=== PATIENT | female | born 1965 | race Caucasian/White ===

== ENCOUNTER 2016-06-07 13:22 | Emergency (ER) | payer OTHER ==
[2016-06-07 13:34] VITALS: O2SAT 100
--- NOTE | 2016-06-07 14:25 | ERPHSYRPT ---
- History of Present Illness Time Seen by Provider: 06/07/16 14:23 Historian: patient, family Exam Limitations: no limitations Patient Subjective Stated Complaint: pt co pain to left side of chest that started over an hour ago with radiation to left jaw and some nausea.pt took 2 nerve pills at home to help Triage Nursing Assessment: pt arrived anxious and would not sit up in wc, resp labored,chest clear, no edema noted, moves all ext well, pt moaning out at times Physician History: The patient is a 50-year-old female with her daughter complaining of a sudden onset of chest pain about an hour and a half ago. The patient was standing in the kitchen fixing lunch when it suddenly hurt her. She says it was a pressure burning and sharp pain. It then radiated to her neck and arm. She was nauseated and short of breath and was sweating. She has a history of anxiety and thought maybe this what it was in the beginning but she thought maybe it was an called her daughter to come take her to the hospital. She was concerned about a heart problem but did not want to call an ambulance because it was too expensive. She has been evaluated for cardiac issues and chest pain in the past , but the workup has been negative. 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 She has COPD and continues to smoke daily. Her family history is unremarkable for early DE. She did not take an aspirin at home. In addition to anxiety, she has irritable bowel syndrome, back pain, and migraine headaches. Her surgical history is significant for laparoscopy. Timing/Duration: today, hour(s) (05 27/2), sudden, improved Activities at Onset: none Quality: burning, pressure, stabbing Location: central Chest Pain Radiation: neck, arm Severity of Pain-Max: severe Severity of Pain-Current: moderate Modifying Factors: Improves With: nothing Associated Symptoms: nausea, shortness of breath, diaphoresis Prior Chest Pain/Cardiac Workup: non-cardiac Nitro Today/Relief: no nitro taken today Aspirin Treatment Today: no aspirin today Allergies/Adverse Reactions: acetaminophen [From Vicodin] Allergy (Intermediate, Verified 06/07/16 13:24) rash and vomits hydrocodone bitartrate [From Vicodin] Allergy (Intermediate, Verified 06/07/16 13:24) rash and vomits meperidine HCl [From Demerol] Allergy (Intermediate, Verified 06/07/16 13:24) rash vomit morphine Allergy (Intermediate, Verified 06/07/16 13:24) rash ketorolac Allergy (Mild, Verified 06/07/16 13:24) causes headache ondansetron [From Zofran (as hydrochloride)] Allergy (Verified 06/07/16 13:24) Home Medications: Codeine Phosphate/APAP #3 [Tylenol #3 Tablet] 1 tab PO Q4-6HPRN PRN [History] Alprazolam 1 mg [Xanax 1 mg] 2 mg PO TID PRN PRN 11/07/14 [History] Ascorbic Acid 500 mg [Vitamin C 500 MG] 500 mg PO BID 04/24/15 [History] Cranberry Extract [Cranberry] 500 mg PO BID 04/24/15 [History] Cyanocobalamin (Vitamin B-12) [B-12] 3,000 mcg SL BID 04/24/15 [History] Lysine 500 mg PO BID 04/24/15 [History] Hx Tetanus, Diphtheria Vaccination/Date Given: Yes Hx Influenza Vaccination/Date Given: No Hx Pneumococcal Vaccination/Date Given: No Immunizations Up to Date: Yes - Review of Systems Constitutional: No Fever, No Chills Eyes: No Symptoms Ears, Nose, & Throat: No Symptoms Respiratory: Dyspnea Cardiac: Chest Pain Abdominal/Gastrointestinal: Nausea Genitourinary Symptoms: No Dysuria Musculoskeletal: No Back Pain, No Neck Pain Skin: No Rash Neurological: No Dizziness, No Focal Weakness, No Sensory Changes Psychological: Anxiety Endocrine: No Symptoms Hematologic/Lymphatic: No Symptoms Immunological/Allergic: No Symptoms All Other Systems: Reviewed and Negative - Past Medical History Pertinent Past Medical History: Yes Neurological History: Migraines ENT History: No Pertinent History Cardiac History: No Pertinent History Respiratory History: COPD Endocrine Medical History: No Pertinent History Musculoskeletal History: No Pertinent History GI Medical History: Irritable Bowel History: Other Psycho-Social History: Anxiety, Depression Female Reproductive Disorders: Endometriosis Other Medical History: possible DE - Past Surgical History Past Surgical History: Yes (D&C years back stated per pt) Neuro Surgical History: No Pertinent History Cardiac: No Pertinent History Respiratory: No Pertinent History Gastrointestinal: No Pertinent History Genitourinary: No Pertinent History Musculoskeletal: No Pertinent History Female Surgical History: No Pertinent History Other Surgical History: Leslie A, Oscar Todd - Social History Smoking Status: Current every day smoker How long have you smoked: 33 YEARS Exposure to second hand smoke: Yes Alcohol Use: Socially Drug Use: none Patient Lives Alone: No Significant Family History: other (migraine HAs) - Female History Hx Last Menstrual Period: post Hx Now: No - Nursing Vital Signs Temperature: 98.1 F Temperature Source: Oral Pulse Rate: 110 Respiratory Rate: 16 Blood Pressure: 160/123 Pain Intensity: 9 - Physical Exam General Appearance: mild distress Eye Exam: PERRL/EOMI, eyes nml inspection Ears, Nose, Throat Exam: normal ENT inspection, moist mucous membranes Neck Exam: normal inspection, non-tender, supple, full range of motion Respiratory Exam: chest tenderness (central) Cardiovascular Exam: regular rate/rhythm, normal heart sounds Gastrointestinal/Abdomen Exam: soft, No tenderness, No mass Pelvic Exam: not done Rectal Exam: not done Back Exam: normal inspection, No CVA tenderness, No vertebral tenderness Extremity Exam: normal inspection, normal range of motion Neurologic Exam: alert, oriented x 3, cooperative, normal mood/affect, sensation nml, No motor deficits Skin Exam: normal color, warm, dry SpO2 Interpretation: normal SpO2: 100 Oxygen Delivery: Room Air - Course EKG Interpreted by Me: Sinus Tach, NORMAL AXIS, NORMAL INTERVALS, NORMAL QRS, NORMAL ST-T Ordered Tests: Medication Summary Discontinued Medications Generic Name Dose Route Start Last Admin Trade Name Freq PRN Reason Stop Dose Admin Aspirin 324 mg 06/07/16 14:27 Baby Aspirin 81 Mg Chew PO 06/07/16 14:28 STAT ONE Nitroglycerin 0.4 mg 06/07/16 14:27 Nitrostat 0.4 Mg (Ed) SL 06/07/16 14:28 STAT ONE Promethazine HCl 12.5 mg 06/07/16 14:27 Phenergan 25 Mg Inj IV 06/07/16 14:28 STAT ONE Lab/Rad Data: Laboratory Result Diagrams 06/07/16 14:34 06/07/16 14:34 Laboratory Results 06/07/16 06/07/16 06/07/16 Range/Units 15:12 14:34 14:34 WBC (4.0-10.5) K/mm3 RBC (4.1-5.4) M/mm3 Hgb (12.0-16.0) gm/dl Hct (35-47) % MCV (78-100) fl MCH (26-32) pg MCHC (32-36) g/dl RDW (11.5-14.0) % Plt Count (150-450) K/mm3 MPV (6-9.5) fl Gran % (36.0-66.0) % Lymphocytes % (24.0-44.0) % Monocytes % (0.0-12.0) % Eosinophils % (0.00-5.0) % Basophils % (0.0-0.4) % Basophils # (0-0.4) Sodium 142 (136-145) mEq/L Potassium 4.3 (3.5-5.1) mEq/L Chloride 106 (98-107) mEq/L Carbon Dioxide 26.8 (21-32) mEq/L Anion Gap 13.4 (5-15) MEQ/L BUN 11 (9-20) mg/dL Creatinine 0.74 (0.55-1.30) mg/dl Estimated GFR > 60 ML/MIN Glucose 99 (70-110) MG/DL Calcium 9.3 (8.5-10.1) mg/dL Total Bilirubin 0.3 (0.2-1.0) mg/dL AST 17 (15-37) U/L ALT 32 (12-78) U/L Alkaline Phosphatase 119 H (46-116) U/L Creatine Kinase 67 (26-192) U/L Troponin I < 0.017 (0.000-0.056) ng/ml Serum Total Protein 7.3 (6.4-8.2) gm/dL Albumin 4.0 (3.4-5.0) g/dL Urine Opiates Level NEG. (NEGATIVE) Ur Methadone NEG. (NEGATIVE) Urine Barbiturates NEG. (NEGATIVE) Ur Phencyclidine (PCP) NEG. (NEGATIVE) Urine Amphetamine NEG. (NEGATIVE) U Benzodiazepine Level POS. (NEGATIVE) Urine Cocaine NEG. (NEGATIVE) Urine Marijuana (THC) NEG. (NEGATIVE) 06/07/16 Range/Units 14:34 WBC 10.6 H (4.0-10.5) K/mm3 RBC 4.64 (4.1-5.4) M/mm3 Hgb 13.4 (12.0-16.0) gm/dl Hct 42.0 (35-47) % MCV 90.5 (78-100) fl MCH 28.9 (26-32) pg MCHC 31.9 L (32-36) g/dl RDW 15.0 H (11.5-14.0) % Plt Count 418 (150-450) K/mm3 MPV 10.4 H (6-9.5) fl Gran % 52.3 (36.0-66.0) % Lymphocytes % 37.5 (24.0-44.0) % Monocytes % 6.7 (0.0-12.0) % Eosinophils % 3.3 (0.00-5.0) % Basophils % 0.2 (0.0-0.4) % Basophils # 0.02 (0-0.4) Sodium (136-145) mEq/L Potassium (3.5-5.1) mEq/L Chloride (98-107) mEq/L Carbon Dioxide (21-32) mEq/L Anion Gap (5-15) MEQ/L BUN (9-20) mg/dL Creatinine (0.55-1.30) mg/dl Estimated GFR ML/MIN Glucose (70-110) MG/DL Calcium (8.5-10.1) mg/dL Total Bilirubin (0.2-1.0) mg/dL AST (15-37) U/L ALT (12-78) U/L Alkaline Phosphatase (46-116) U/L Creatine Kinase (26-192) U/L Troponin I (0.000-0.056) ng/ml Serum Total Protein (6.4-8.2) gm/dL Albumin (3.4-5.0) g/dL Urine Opiates Level (NEGATIVE) Ur Methadone (NEGATIVE) Urine Barbiturates (NEGATIVE) Ur Phencyclidine (PCP) (NEGATIVE) Urine Amphetamine (NEGATIVE) U Benzodiazepine Level (NEGATIVE) Urine Cocaine (NEGATIVE) Urine Marijuana (THC) (NEGATIVE) - Departure Time of Disposition: 15:44 Departure Disposition: Home Clinical Impression: Chest pain of uncertain etiology Condition: Good Critical Care Time: No Referrals: SHIRA YUNG [Primary Care Provider] -
[2016-06-07 14:26] VITALS: BP 160/123; PULSE 110
[2016-06-07] MEDS ORDERED: Nitrostat 0.4 MG (ED) SL ONE (14:27)
[2016-06-07] MEDS ORDERED: BABY ASPIRIN 81 MG CHEW PO ONE (14:27)
[2016-06-07] MEDS ORDERED: Phenergan 25 MG INJ IV ONE (14:27)
[2016-06-07 14:39] LABS: BASOPHIL % 0.2 % (0.0-0.4); Eosinophil % 3.3 % (0.00-5.0); Granulocytes % 52.3 % (36.0-66.0); Lymphocytes % 37.5 % (24.0-44.0); Mean Cell Volume 90.5 fl (78-100); Mean Corpuscular Hemoglobin 28.9 pg (26-32); Mean Platelet Volume 10.4 fl (6-9.5); Monocytes % 6.7 % (0.0-12.0); Platelet Count 418 K/mm3 (150-450); Red Blood Count 4.64 M/mm3 (4.1-5.4); White Blood Count 10.6 K/mm3 (4.0-10.5)
[2016-06-07 14:54] LABS: ALKALINE PHOSPHATASE 119 U/L (46-116); ANION GAP 13.4 MEQ/L (5-15); BILIRUBIN,TOTAL 0.3 mg/dL (0.2-1.0); BLOOD UREA NITROGEN 11 mg/dL (9-20); CHLORIDE 106 mEq/L (98-107); Carbon Dioxide 26.8 mEq/L (21-32); Glucose 99 MG/DL (70-110); SGOT/AST 17 U/L (15-37); SGPT/ALT 32 U/L (12-78); SODIUM 142 mEq/L (136-145); Total Protein 7.3 gm/dL (6.4-8.2)
[2016-06-07 14:58] LABS: Potassium 4.3 mEq/L (3.5-5.1)
== END 2016-06-07 14:41 | disposition left against medical advice (07) ==
LOC: ED 13:22
DX: R07.89 Other chest pain (principal); R11.0 Nausea; R06.02 Shortness of breath; R61 Generalized hyperhidrosis
CPT/HCPCS: 36000; 36415; 80053; 80307; 82550; 84484; 85025; 93005; 93041; 99283

== ENCOUNTER 2017-10-13 14:16 | Emergency (ER) | payer OTHER ==
[2017-10-13] MEDS ORDERED: Nubain 10 MG/ML IM ONE (14:53)
[2017-10-13] MEDS ORDERED: Phenergan 25 MG INJ IM ONE (14:54)
[2017-10-13] MEDS ORDERED: Nubain 10 MG/ML ONE (14:56)
[2017-10-13] MEDS ORDERED: Phenergan 25 MG INJ ONE (14:56)
--- NOTE | 2017-10-13 14:59 | ERPHSYRPT ---
- History of Present Illness Time Seen by Provider: 10/13/17 14:55 Source: patient Exam Limitations: no limitations Patient Subjective Stated Complaint: was lifting heavy furniture heard her back pop and now is having extreme pain in lower middle of back Triage Nursing Assessment: patietn alert and orietnedx3, able to ambulate but is hunched over when walks, gait is slow but steady, pedal pulses present, no abnormalities seen on back, skin warm dry adn itnact, lung sounds clear, pulses equal bilateral radius. Physician History: 52-year-old white female with history of chronic pain chronic back pain arrives with complaint of pain in her low back symptoms since this afternoon. Patient states that she decided to move a couch and strained her back she complains of pain in her back. Past medical history includes migraines, COPD, irritable bowel, anxiety, depression, endometriosis, possible myocardial infarction Past surgical history includes D&C. Patient states she's been through menopause Timing/Duration: today Severity: moderate Modifying Factors: Improves With: movement Associated Symptoms: No nausea, No vomiting, No abdominal pain, No shortness of breath, No heartburn, No diaphoresis, No cough, No chills, No chest pain, No fever, No headaches, No loss of appetite, No malaise, No rash, No syncope, No seizure Allergies/Adverse Reactions: acetaminophen [From Vicodin] Allergy (Intermediate, Verified 06/07/16 13:24) rash and vomits hydrocodone bitartrate [From Vicodin] Allergy (Intermediate, Verified 06/07/16 13:24) rash and vomits meperidine HCl [From Demerol] Allergy (Intermediate, Verified 06/07/16 13:24) rash vomit morphine Allergy (Intermediate, Verified 06/07/16 13:24) rash ketorolac Allergy (Mild, Verified 06/07/16 13:24) causes headache ondansetron [From Zofran (as hydrochloride)] Allergy (Verified 06/07/16 13:24) Home Medications: Codeine Phosphate/APAP #3 [Tylenol #3 Tablet] 1 tab PO Q4-6HPRN PRN [History] Alprazolam 1 mg [Xanax 1 mg] 2 mg PO TID PRN PRN 11/07/14 [History] Ascorbic Acid 500 mg [Vitamin C 500 MG] 500 mg PO BID 04/24/15 [History] Cranberry Fruit Extract [Cranberry] 500 mg PO BID 04/24/15 [History] Cyanocobalamin (Vitamin B-12) [B-12] 3,000 mcg SL BID 04/24/15 [History] Lysine 500 mg PO BID 04/24/15 [History] Hx Tetanus, Diphtheria Vaccination/Date Given: Yes Hx Influenza Vaccination/Date Given: No Hx Pneumococcal Vaccination/Date Given: No Immunizations Up to Date: Yes - Review of Systems Constitutional: No Fever, No Chills Eyes: No Symptoms Ears, Nose, & Throat: No Symptoms Respiratory: No Cough, No Dyspnea Cardiac: No Chest Pain, No Edema, No Syncope Abdominal/Gastrointestinal: No Abdominal Pain, No Nausea, No Vomiting, No Diarrhea Genitourinary Symptoms: No Dysuria Musculoskeletal: Back Pain Skin: No Rash Neurological: No Dizziness, No Focal Weakness, No Sensory Changes Psychological: No Symptoms Endocrine: No Symptoms All Other Systems: Reviewed and Negative - Past Medical History Pertinent Past Medical History: Yes Neurological History: Migraines ENT History: No Pertinent History Cardiac History: No Pertinent History Respiratory History: COPD Endocrine Medical History: No Pertinent History Musculoskeletal History: No Pertinent History GI Medical History: Irritable Bowel History: Other Psycho-Social History: Anxiety, Depression Female Reproductive Disorders: Endometriosis Other Medical History: possible [facility] - Past Surgical History Past Surgical History: Yes (D&C years back stated per pt) Neuro Surgical History: No Pertinent History Cardiac: No Pertinent History Respiratory: No Pertinent History Gastrointestinal: No Pertinent History Genitourinary: No Pertinent History Musculoskeletal: No Pertinent History Female Surgical History: No Pertinent History Other Surgical History: Oscar Langford - Social History Smoking Status: Current every day smoker How long have you smoked: 33 YEARS Exposure to second hand smoke: Yes Alcohol Use: Socially Drug Use: none Patient Lives Alone: No Significant Family History: other (migraine HAs) - Female History Hx Now: No - Nursing Vital Signs Nursing Vital Signs: Initial Vital Signs Temperature 98 F 10/13/17 14:17 Pulse Rate 98 H 10/13/17 14:17 Respiratory Rate 18 10/13/17 14:17 Blood Pressure 119/80 10/13/17 14:17 O2 Sat by Pulse Oximetry 97 10/13/17 14:17 Pain Scale Pain Intensity [Posterior Back 10 ] Pain Intensity 10 - Physical Exam General Appearance: moderate distress Eye Exam: PERRL/EOMI, eyes nml inspection Ears, Nose, Throat Exam: normal ENT inspection, TMs normal, pharynx normal, moist mucous membranes Neck Exam: normal inspection, non-tender, supple, full range of motion Respiratory Exam: normal breath sounds, lungs clear, No respiratory distress Cardiovascular Exam: regular rate/rhythm, normal heart sounds, normal peripheral pulses Gastrointestinal/Abdomen Exam: soft, normal bowel sounds, No tenderness, No mass Back Exam: other (pain with palpation and movement lumbar region) Extremity Exam: normal inspection, normal range of motion, pelvis stable Neurologic Exam: alert, oriented x 3, cooperative, normal mood/affect, nml cerebellar function, nml station & gait, sensation nml, No motor deficits Skin Exam: normal color, warm, dry, No rash SpO2 Interpretation: normal (97%) SpO2: 97 Oxygen Delivery: Room Air - Course Nursing assessment & vital signs reviewed: Yes EKG Interpreted by Me: RATE (95 bpm), Sinus Rhythm, NORMAL AXIS, Other (EKG, normal sinus rhythm, 95 bpm, normal axis, no acute ST or T wave changes, normal EKG) - Radiology Exams Chest X-ray Interpretation: Interpreted by me, Other (chest x-ray no fractures, no infiltrates, no pneumothorax) L-Spine X-ray Interpretation: Interpreted by me (LS-spine no fractures, no subluxation, loss of lumbar lordosis possible muscle spasm) Ordered Tests: Active Orders 24 hr Category Date Time Status EKG-ER Only STAT Care 10/13/17 15:26 Active CHEST 2 VIEWS (PA AND LAT) Stat Exams 10/13/17 15:27 Ordered LUMBAR LIMITED (2 OR 3 VIEWS) Stat Exams 10/13/17 14:56 Ordered Medication Summary Discontinued Medications Generic Name Dose Route Start Last Admin Trade Name Freq PRN Reason Stop Dose Admin Nalbuphine HCl 10 mg 10/13/17 14:53 10/13/17 14:59 Nubain 10 Mg/Ml IM 10/13/17 14:54 10 mg STAT ONE Administration Nalbuphine HCl Confirm 10/13/17 14:56 Nubain 10 Mg/Ml Administered 10/13/17 14:57 Dose 10 mg .ROUTE .STK-MED ONE Orphenadrine Citrate 60 mg 10/13/17 16:02 10/13/17 16:05 Norflex 60 Mg/2 Ml IM 10/13/17 16:03 60 mg STAT ONE Administration Orphenadrine Citrate Confirm 10/13/17 16:04 Norflex 60 Mg/2 Ml Administered 10/13/17 16:05 Dose 60 mg .ROUTE .STK-MED ONE Promethazine HCl 25 mg 10/13/17 14:54 10/13/17 14:59 Phenergan 25 Mg Inj IM 10/13/17 14:55 25 mg STAT ONE Administration Promethazine HCl Confirm 10/13/17 14:56 Phenergan 25 Mg Inj Administered 10/13/17 14:57 Dose 25 mg .ROUTE .STK-MED ONE - Progress Progress: improved Progress Note: 10/13/17 15:28 52-year-old white female with history of migraines, COPD, irritable bowel, anxiety, depression, endometriosis, questionable VA in the past. She arrives with complaint of pain in her back since just one half hour prior to arrival she states she injured herself moving a couch. She also states like she feels like she injured her chest and pulled something in her chest muscles moving a couch she states she does not have chest pain she has pain with movement in the anterior chest. Patient is given Nubain 10 mg IM Phenergan 25 mg IM. LS spine is ordered chest x-ray 2 views ordered EKG is ordered. Patient really does not feel like she has chest pain rather than pain like she pulled something in her chest after moving a couch. 10/13/17 16:14 Patient better but not completely pain-free after Nubain patient given Norflex. EKG within normal limits patient mildly tender with palpation over the sternum. Chest x-ray unremarkable. Lumbar spine no fractures no subluxation loss of lumbar lordosis possible muscle spasm. Will release patient with Flexeril 10 mg orally 3 times a day patient has are not [place] Tylenol 3 at home. - Departure Time of Disposition: 16:15 Departure Disposition: Home Clinical Impression: Muscle strain of anterior chest wall Back pain Qualifiers: Back pain location: low back pain Chronicity: acute Back pain laterality: midline Sciatica presence: without sciatica Qualified Code(s): M54.5 - Low back pain Lumbar strain Qualifiers: Encounter type: initial encounter Qualified Code(s): S39.012A - Strain of muscle, fascia and tendon of lower back, initial encounter Condition: Fair Critical Care Time: No Referrals: SHIRA YUNG [Primary Care Provider] - Instructions: Low Back Pain (DC) Additional Instructions: Return home. Flexeril 10 mg orally 3 times a day for 5 days. Tylenol 3 as prescribed by your family physician. Avoid lifting greater than 5 pounds excessive bending twisting lifting pulling pushing 48 hours. Follow-up with your family doctor if symptoms are worse no better in 48 hours or persist longer than one week. Return for acute distress or for severe symptoms. Your x-rays have been preliminarily read They will be reread tomorrow. You will be contacted if any discrepancies are noted. Prescriptions: Cyclobenzaprine HCl [Flexeril] 10 mg PO TID #15 tablet
[2017-10-13 15:11] VITALS: PULSE 100
[2017-10-13] MEDS ORDERED: Norflex 60 MG/2 ML IM ONE (16:02)
[2017-10-13] MEDS ORDERED: Norflex 60 MG/2 ML ONE (16:04)
[2017-10-13 16:26] VITALS: BP 126/81; O2SAT 96
--- NOTE | 2017-10-13 21:13 | XRAY ---
Indication: Pulled muscle. Comparison: May 21, 2015. PA/lateral chest again hyperinflated with chronic lung markings and bilateral nipple shadows. No focal infiltrate, consolidation, or large effusion. Heart is not enlarged. Bone thorax intact again with mild osteopenia, degenerative changes, and minimal scoliosis. Impression: Nonacute chest with chronic features.
--- NOTE | 2017-10-13 21:16 | XRAY ---
Indication: Low back pain following injury. Comparison: None 3 views of the lumbar spine demonstrates 5 lumbar vertebral segments in normal alignment with mild osteopenia, minimal L4-L5 disc space narrowing, mild aortic calcifications, and mild scattered colonic fecal debris without obstruction. No other bony, articular, or soft tissue abnormalities. Impression: Nonacute lumbar spine with chronic features.
== END 2017-10-13 16:26 | disposition home or self-care (01) ==
LOC: ED 14:16
DX: S29.011A Strain of muscle and tendon of front wall of thorax, initial encounter (principal); S39.012A Strain of muscle, fascia and tendon of lower back, initial encounter; X50.0XXA Overexertion from strenuous movement or load, initial encounter
CPT/HCPCS: 71046; 72100; 93005; 96372; 99284; J2300; J2360; J2550

== ENCOUNTER 2017-12-08 20:11 | Emergency (ER) | payer OTHER ==
[2017-12-08] MEDS ORDERED: Norflex 60 MG/2 ML IM ONE (20:36)
[2017-12-08] MEDS ORDERED: Phenergan 25 MG INJ IM ONE (20:36)
[2017-12-08] MEDS ORDERED: SUBLIMAZE 100 MCG/2 ML IM ONE (20:36)
--- NOTE | 2017-12-08 20:46 | ERPHSYRPT ---
- History of Present Illness Time Seen by Provider: 12/08/17 20:19 Source: patient Exam Limitations: no limitations Patient Subjective Stated Complaint: Broke 4 vertebrae 3 weeks ago and has been in pain since then but fell off the porch yesterday Triage Nursing Assessment: Pt stated that she broke 4 vertebrae about 3 weeks ago from trying to lift something, went to hospital in [facility], fell from porch yesterday, pain in lower back that radiates around pelvis and down legs, pulses normal, tachy at 109, stated that she has some numbing and tingling in her toes and feet, denies neck pain, rates pain 8/10, denies fever, has had some vomiting with pain Physician History: Pt states, she was seen here 3 weeks ago, after a lifting incident, and sent home. She went to [place] to the local ED few days later, and apparently was diagnosed with 4 fractured vertebrae. She was given Percocet, Robaxin and Phenergan, but ran out of it, and unable to reach her physician, who is in [place]. She apparently fell again off her porch yesterday, landed on her buttock, and aggravated her back. She denies other injury, no headaches, LOC, vomiting, abd. pain, fever, other complaints. Timing/Duration: yesterday Method of Injury: fall Quality: radiating, sharp Back Pain Location: lumbar spine Back Pain Radiation: buttocks Severity of Pain-Max: severe Severity of Pain-Current: severe Modifying Factors: Improves With: movement Associated Symptoms: denies symptoms Previous symptoms: same symptoms as today Allergies/Adverse Reactions: acetaminophen [From Vicodin] Allergy (Intermediate, Verified 12/08/17 20:35) rash and vomits hydrocodone bitartrate [From Vicodin] Allergy (Intermediate, Verified 12/08/17 20:35) rash and vomits meperidine HCl [From Demerol] Allergy (Intermediate, Verified 12/08/17 20:34) rash vomit morphine Allergy (Intermediate, Verified 12/08/17 20:35) rash ketorolac Allergy (Mild, Verified 12/08/17 20:35) causes headache ondansetron [From Zofran (as hydrochloride)] Allergy (Verified 12/08/17 20:35) Home Medications: Codeine Phosphate/APAP #3 [Tylenol #3 Tablet] 1 tab PO Q4-6HPRN PRN [History] Diltiazem HCl [Cartia Xt] 120 mg PO DAILY 12/08/17 [History] LORazepam [Lorazepam] 1 mg PO HS 12/08/17 [History] Hx Tetanus, Diphtheria Vaccination/Date Given: Yes Hx Influenza Vaccination/Date Given: No Hx Pneumococcal Vaccination/Date Given: No - Review of Systems Constitutional: No Symptoms Respiratory: No Symptoms Abdominal/Gastrointestinal: No Abdominal Pain, No Vomiting Musculoskeletal: Back Pain All Other Systems: Reviewed and Negative - Past Medical History Pertinent Past Medical History: Yes Neurological History: Migraines ENT History: No Pertinent History Cardiac History: No Pertinent History Respiratory History: COPD Endocrine Medical History: No Pertinent History Musculoskeletal History: No Pertinent History GI Medical History: Irritable Bowel History: Other Psycho-Social History: Anxiety, Depression Female Reproductive Disorders: Endometriosis Other Medical History: possible [place] - Past Surgical History Past Surgical History: Yes (D&C years back stated per pt) Neuro Surgical History: No Pertinent History Cardiac: No Pertinent History Respiratory: No Pertinent History Gastrointestinal: No Pertinent History Genitourinary: No Pertinent History Musculoskeletal: No Pertinent History Female Surgical History: No Pertinent History Other Surgical History: Dand C, and a laproscopy - Social History Smoking Status: Current every day smoker How long have you smoked: 33 YEARS Exposure to second hand smoke: No Alcohol Use: Socially Drug Use: none Patient Lives Alone: No Significant Family History: other (migraine HAs) - Nursing Vital Signs Nursing Vital Signs: Initial Vital Signs Temperature 98.7 F 12/08/17 20:16 Pulse Rate 107 H 12/08/17 20:16 Blood Pressure 100/82 12/08/17 20:16 O2 Sat by Pulse Oximetry 98 12/08/17 20:16 Pain Scale Pain Intensity [Lower 8 Posterior Back] Pain Intensity 8 - Physical Exam General Appearance: no apparent distress Eye Exam: eyes nml inspection Ears, Nose, Throat Exam: normal ENT inspection Neck Exam: normal inspection, non-tender, supple Respiratory Exam: normal breath sounds, lungs clear, airway intact, No chest tenderness Cardiovascular Exam: regular rate/rhythm, normal heart sounds, normal peripheral pulses, No murmur Gastrointestinal Exam: soft, normal bowel sounds, No tenderness, No distention, No mass, No guarding, No ecchymosis, No rebound, No organomegaly Back Exam: normal inspection, muscle spasm (bilateral, paralumbar areas, no bruises or swelling, no deformity, pos. bilateral sciatica tenderness.), other ( straight leg raising negativ on both sides.), No CVA tenderness, No vertebral tenderness Extremity Exam: normal inspection, pelvis stable, No contusions, No calf tenderness, No pedal edema Peripheral Pulses: dorsalis-pedis (R): 3+, dorsalis-pedis (L): 3+ Neurologic Exam: alert, oriented x 3, normal mood/affect, nml station & gait, No motor deficits, No motor weakness Skin Exam: normal color, warm, dry, No rash Lymphatic Exam: No adenopathy SpO2 Interpretation: normal SpO2: 98 Oxygen Delivery: Room Air - Course Nursing assessment & vital signs reviewed: Yes - Radiology Exams L-Spine X-ray Interpretation: Interpreted by me, Other (L4 compression (old)) Ordered Tests: Active Orders 24 hr Category Date Time Status LUMBAR LIMITED (2 OR 3 VIEWS) Stat Exams 12/08/17 20:38 Taken CULTURE,URINE Stat Lab 12/08/17 21:12 Received UA W/ MICROSCOPIC Stat Lab 12/08/17 21:12 Completed Urine Triage Profile Stat Lab 12/08/17 21:12 Completed Medication Summary Discontinued Medications Generic Name Dose Route Start Last Admin Trade Name Adelita PRN Reason Stop Dose Admin Fentanyl Citrate 75 mcg 12/08/17 20:36 12/08/17 21:04 Sublimaze 100 Mcg/2 Ml IM 12/08/17 20:37 75 mcg STAT ONE Administration Fentanyl Citrate Confirm 12/08/17 20:50 Sublimaze 100 Mcg/2 Ml Administered 12/08/17 20:51 Dose 100 mcg .ROUTE .STK-MED ONE Orphenadrine Citrate 60 mg 12/08/17 20:36 12/08/17 21:03 Norflex 60 Mg/2 Ml IM 12/08/17 20:37 60 mg STAT ONE Administration Orphenadrine Citrate Confirm 12/08/17 20:47 Norflex 60 Mg/2 Ml Administered 12/08/17 20:48 Dose 60 mg .ROUTE .STK-MED ONE Promethazine HCl 25 mg 12/08/17 20:36 12/08/17 21:03 Phenergan 25 Mg Inj IM 12/08/17 20:37 25 mg STAT ONE Administration Promethazine HCl Confirm 12/08/17 20:47 Phenergan 25 Mg Inj Administered 12/08/17 20:48 Dose 25 mg .ROUTE .STK-MED ONE Lab/Rad Data: Laboratory Results 12/08/17 12/08/17 Range/Units 21:12 21:12 Ur Collection Type VOID Urine Color DARK YELLOW (YELLOW) Urine Appearance SLIGHTLY CLOUDY (CLEAR) Urine pH 6.0 (5-6) Ur Specific [place] 1.025 (1.005-1.025) Urine Protein NEGATIVE (Negative) Urine Ketones NEGATIVE (NEGATIVE) Urine Blood NEGATIVE (0-5) John Paul/ul Urine Nitrite NEGATIVE (NEGATIVE) Urine Bilirubin SMALL (NEGATIVE) Urine Urobilinogen 1 (0-1) mg/dL Ur Leukocyte Esterase 1+ (NEGATIVE) Urine Microscopic RBC 2-5 (0-2) /HPF Urine Microscopic WBC 10-15 (0-5) /HPF Ur Epithelial Cells MANY (FEW) /HPF Calcium Oxalate Crystal 5-10 (NEGATIVE) /HPF Urine Bacteria MODERATE (NEGATIVE) /HPF Urine Mucus MODERATE (NEGATIVE) /HPF Urine Culture Reflexed YES (NO) Urine Glucose NEGATIVE (NEGATIVE) mg/dL Urine Opiates Level POSITIVE (NEGATIVE) Ur Methadone NEGATIVE (NEGATIVE) Urine Barbiturates NEGATIVE (NEGATIVE) Ur Phencyclidine (PCP) NEGATIVE (NEGATIVE) Urine Amphetamine NEGATIVE (NEGATIVE) U Benzodiazepine Level NEGATIVE (NEGATIVE) Urine Cocaine NEGATIVE (NEGATIVE) Urine Marijuana (THC) NEGATIVE (NEGATIVE) Specimen Received 12/08/170 - Progress Progress: improved Progress Note: 12/08/17 21:53 Pt is able to ambulate with mild antalgic posture, no severe pain or distress, no urinary retention, afebrile, stable, I discussed X ray result with her, she is being discharged to follow up with her physician this week, rest x 3-4 days, and apply moist heat to her back, return if severe pain, sudden leg weakness, numbness, fever> 102 F, severe abdominal pain, vomiting, loss of bladder or bowel control! 12/08/17 21:54 Counseled pt/family regarding: lab results, diagnosis, need for follow-up, rad results - Departure Time of Disposition: 21:55 Departure Disposition: Home Clinical Impression: Back pain Qualifiers: Back pain location: low back pain Chronicity: chronic Back pain laterality: bilateral Sciatica presence: without sciatica Qualified Code(s): M54.5 - Low back pain; G89.29 - Other chronic pain UTI (urinary tract infection) Qualifiers: Urinary tract infection type: site unspecified Hematuria presence: without hematuria Qualified Code(s): N39.0 - Urinary tract infection, site not specified Condition: Stable Critical Care Time: No Referrals: SHIRA YUNG [ACTIVE STAFF] - Instructions: Low Back Pain (DC), Urinary Tract Infection, Adult (DC) Additional Instructions: Rest x 3-4 days, apply moist heat to painful area, return if severe pain, vomiting, fever> 102 F or sudden leg weakness, numbness, or loss of bladder , bowel control! Follow up with your physician in 3-4 days! Prescriptions: Cephalexin Mh 500 mg [Keflex 500 mg] 500 mg PO TID 7 Days #21 capsule Methocarbamol [Robaxin-750] 1,500 mg PO TID 5 Days #30 tablet Promethazine HCl 25 mg [Phenergan 25 mg] 25 mg PO BID PRN 5 Days #10 tablet PRN Reason: Nausea/Vomiting
[2017-12-08] MEDS ORDERED: Norflex 60 MG/2 ML ONE (20:47)
[2017-12-08] MEDS ORDERED: Phenergan 25 MG INJ ONE (20:47)
[2017-12-08] MEDS ORDERED: SUBLIMAZE 100 MCG/2 ML ONE (20:50)
[2017-12-08 21:24] LABS: Appearance SLIGHTLY CLOUDY (CLEAR)
[2017-12-08 21:25] LABS: Bacteria MODERATE /HPF (NEGATIVE); Bilirubin SMALL (NEGATIVE); Blood NEGATIVE Ery/ul (0-5); Epithelial Cells MANY /HPF (FEW); Glucose NEGATIVE (NEGATIVE); Ketones NEGATIVE (NEGATIVE); Leukocyte Esterase 1+ (NEGATIVE); Mucus MODERATE /HPF (NEGATIVE); Nitrite NEGATIVE (NEGATIVE); Protein,Urine Dip NEGATIVE (Negative); Specific Gravity 1.025 (1.005-1.025); Urobilinogen 1 mg/dL (0-1)
[2017-12-08 21:31] LABS: Amphetamine,Urine NEGATIVE (NEGATIVE); Barbiturate,Urine NEGATIVE (NEGATIVE); Benzodiazepine,Urine NEGATIVE (NEGATIVE); Cocaine,Urine NEGATIVE (NEGATIVE); Methadone,Urine NEGATIVE (NEGATIVE); Opiate,Urine POSITIVE (NEGATIVE); PCP,Urine NEGATIVE (NEGATIVE); THC,Urine NEGATIVE (NEGATIVE)
[2017-12-08] MEDS ORDERED: KEFLEX 500 MG PO ONE (21:56)
[2017-12-08] MEDS ORDERED: KEFLEX 500 MG ONE (22:04)
[2017-12-08 22:26] VITALS: BP 115/74; PULSE 84; O2SAT 97
--- NOTE | 2017-12-09 08:40 | XRAY ---
Indication: Low back pain one month. Prior injury. Comparison: October 13, 2017. 3 views of the lumbar spine demonstrates new L4 superior endplate fracture with approximately 25% height loss of uncertain chronicity. Stable minimal L1 superior endplate concave deformity. No other bony, articular, or soft tissue abnormalities.
== END 2017-12-08 22:26 | disposition home or self-care (01) ==
LOC: ED 20:11
DX: M54.5 Low back pain (principal); N39.0 Urinary tract infection, site not specified; M62.830 Muscle spasm of back; Z79.899 Other long term (current) drug therapy
CPT/HCPCS: 72100; 80307; 81000; 87086; 96372; 99284; J2360; J2550; J3010; A9270-GY

== ENCOUNTER 2017-12-15 20:01 | Emergency (ER) | payer OTHER ==
[2017-12-15 20:16] VITALS: BP 116/87; PULSE 94; O2SAT 98
[2017-12-15] MEDS ORDERED: Phenergan 25 MG INJ IM ONE (20:21)
[2017-12-15] MEDS ORDERED: Nubain 10 MG/ML IM ONE (20:21)
[2017-12-15] MEDS ORDERED: Nubain 10 MG/ML ONE (20:24)
[2017-12-15] MEDS ORDERED: Phenergan 25 MG INJ ONE (20:24)
--- NOTE | 2017-12-15 20:28 | ERPHSYRPT ---
- History of Present Illness Time Seen by Provider: 12/15/17 20:21 Source: patient Exam Limitations: no limitations Patient Subjective Stated Complaint: pt states she has been diagnosed with multiple lumbar fractures and has been having increased pain after lifting furniture at home Triage Nursing Assessment: pt alert and oriented, pt ambulatory with stooped, steady gait. respirations nonlabored with lungs cta. pt states pain radiates from lower back doiwn to rt knee and to lt hip Physician History: 52-year-old white female with history of a chronic back pain, migraines, COPD, irritable bowel, anxiety, depression, endometriosis patient arrives with complaint of back pain which is chronic has been going on for a month says it radiates to her left hip and down to her right knee. She apparently had been seen in the September had an x-ray performed at that time in no acute changes she was seen again 3 days ago noted to have an old compression fracture She continues to have pain as described above she has no sensory loss. Patient was seen here on December 08, 2017 the received an injection of fentanyl and Norflex she was also placed on Keflex for UTI. She states she's been seen in [place] for back pain as well. She has no new recent injury states he states he heard herself about a month ago moving furniture. Past medical history includes migraines, chronic back pain, COPD, irritable bowel, anxiety, depression, endometriosis, possible HI. Past surgical history includes D&C. Timing/Duration: other (patient states pain has been going on for over 1 month worse past 2 weeks) Severity: moderate Modifying Factors: Improves With: medication (Patient was seen in this er Placed on Percocet and Norflex) Associated Symptoms: No nausea, No vomiting, No abdominal pain, No shortness of breath, No heartburn, No diaphoresis, No cough, No chills, No chest pain, No fever, No headaches, No malaise, No rash, No syncope, No seizure, No weakness Allergies/Adverse Reactions: hydrocodone bitartrate [From Vicodin] Allergy (Intermediate, Verified 12/15/17 20:30) rash and vomits meperidine HCl [From Demerol] Allergy (Intermediate, Verified 12/15/17 20:30) rash vomit morphine Allergy (Intermediate, Verified 12/15/17 20:30) rash ketorolac Allergy (Mild, Verified 12/15/17 20:30) causes headache ondansetron [From Zofran (as hydrochloride)] Allergy (Verified 12/15/17 20:30) Home Medications: Diltiazem HCl [Cartia Xt] 120 mg PO DAILY 12/08/17 [History] LORazepam [Lorazepam] 1 mg PO HS 12/08/17 [History] Hx Tetanus, Diphtheria Vaccination/Date Given: Yes Hx Influenza Vaccination/Date Given: No Hx Pneumococcal Vaccination/Date Given: No Immunizations Up to Date: Yes - Review of Systems Constitutional: No Fever, No Chills Eyes: No Symptoms Ears, Nose, & Throat: No Symptoms Respiratory: No Cough, No Dyspnea Cardiac: No Chest Pain, No Edema, No Syncope Abdominal/Gastrointestinal: No Abdominal Pain, No Nausea, No Vomiting, No Diarrhea Genitourinary Symptoms: No Dysuria Musculoskeletal: Back Pain (low bacl pain ra himdiating to both hips) Skin: No Rash Neurological: No Dizziness, No Focal Weakness, No Sensory Changes Psychological: No Symptoms Endocrine: No Symptoms All Other Systems: Reviewed and Negative - Past Medical History Pertinent Past Medical History: Yes Neurological History: Migraines ENT History: No Pertinent History Cardiac History: No Pertinent History Respiratory History: COPD Endocrine Medical History: No Pertinent History Musculoskeletal History: No Pertinent History GI Medical History: Irritable Bowel History: Other Psycho-Social History: Anxiety, Depression Female Reproductive Disorders: Endometriosis Other Medical History: possible [place] - Past Surgical History Past Surgical History: Yes (D&C years back stated per pt) Neuro Surgical History: No Pertinent History Cardiac: No Pertinent History Respiratory: No Pertinent History Gastrointestinal: No Pertinent History Genitourinary: No Pertinent History Musculoskeletal: No Pertinent History Female Surgical History: No Pertinent History Other Surgical History: Dand C, and a laproscopy - Social History Smoking Status: Current every day smoker How long have you smoked: 33 YEARS Exposure to second hand smoke: No Alcohol Use: Socially Drug Use: none Patient Lives Alone: No Significant Family History: other (migraine HAs) - Nursing Vital Signs Nursing Vital Signs: Initial Vital Signs Temperature 98.0 F 12/15/17 20:07 Pulse Rate 94 H 12/15/17 20:07 Respiratory Rate 18 12/15/17 20:07 Blood Pressure 116/87 12/15/17 20:07 O2 Sat by Pulse Oximetry 98 12/15/17 20:07 Pain Scale Pain Intensity [Lower Back] 8 Pain Intensity 8 - Physical Exam General Appearance: mild distress Eye Exam: PERRL/EOMI, eyes nml inspection Ears, Nose, Throat Exam: normal ENT inspection, TMs normal, pharynx normal, moist mucous membranes Neck Exam: normal inspection, non-tender, supple, full range of motion Respiratory Exam: normal breath sounds, lungs clear, No respiratory distress Cardiovascular Exam: regular rate/rhythm, normal heart sounds, normal peripheral pulses Gastrointestinal/Abdomen Exam: soft, normal bowel sounds, No tenderness, No mass Back Exam: other (pain in the low lumbar region left side with movement and palpation) Extremity Exam: normal inspection, normal range of motion, pelvis stable Neurologic Exam: alert, oriented x 3, cooperative, senior clinical data coordinator II-XII nml as tested, normal mood/affect, nml cerebellar function, nml station & gait, sensation nml, No motor deficits Skin Exam: normal color, warm, dry, No rash SpO2 Interpretation: normal (98%) SpO2: 98 Oxygen Delivery: Room Air - Course Nursing assessment & vital signs reviewed: Yes Ordered Tests: Medication Summary Discontinued Medications Generic Name Dose Route Start Last Admin Trade Name Adelita PRN Reason Stop Dose Admin Nalbuphine HCl 10 mg 12/15/17 20:21 12/15/17 20:25 Nubain 10 Mg/Ml IM 12/15/17 20:22 10 mg STAT ONE Administration Nalbuphine HCl Confirm 12/15/17 20:24 Nubain 10 Mg/Ml Administered 12/15/17 20:25 Dose 10 mg .ROUTE .STK-MED ONE Promethazine HCl 25 mg 12/15/17 20:21 12/15/17 20:26 Phenergan 25 Mg Inj IM 12/15/17 20:22 25 mg STAT ONE Administration Promethazine HCl Confirm 12/15/17 20:24 Phenergan 25 Mg Inj Administered 12/15/17 20:25 Dose 25 mg .ROUTE .STK-MED ONE - Progress Progress: improved (He is normal for him) Progress Note: 12/15/17 20:28 52-year-old white female with history of chronic back pain, migraines arrives with complaint of back pain for over a month she states that she had injured her back moving furniture over a month ago, She apparently states she is seen in the physician in [place] secondary to this she states that she wants to find a new doctor, And she wants 5 one here, She was seen here in the September 2017 at that time x-rays were unremarkable she was given an injection of Nubain and Norflex sent home on Flexeril, She was also seen here on December 08, 2017, X-ray showed an old compression fracture otherwise unremarkable she was given an injection of Norflex and fentanyl and sent home with oxycodone 5/325, She states she has run out of her pain medications, I reviewed the patient's inspect report she does have a nurse practitioner who is prescribing lorazepam 1 mg tablets she received 60 of these on december 05, 20172017 she also had received Tylenol with Codeine No. 3 #30 tablets, which she filledjuly 2017 review of the patient's of chart shows that she has received regular prescriptions of lorazepam and Tylenol 3 in the recent past. On physical examination patient is tender on her left the lumbar region with palpation she has full range of motion to her extremities she does not exhibited neurologic deficits. Patient has had a recent lumbar series which was remarkable for an old compression fracture. Will give patient an injection of Nubain and Phenergan for her pain. Will not prescribe further narcotic analgesia as a take-home patient really will need to follow-up with a local physician for chronic pain. She will be advised to take Tylenol for pain as needed. 12/15/17 20:36 - Departure Time of Disposition: 20:32 Departure Disposition: Home Clinical Impression: Chronic back pain Qualifiers: Back pain location: low back pain Back pain laterality: bilateral Sciatica presence: with sciatica Sciatica laterality: sciatica laterality unspecified Qualified Code(s): M54.40 - Lumbago with sciatica, unspecified side Condition: Fair Critical Care Time: No Referrals: DOCTOR,NO FAMILY [Primary Care Provider] - Instructions: Low Back Pain (DC), Sciatica (DC) Additional Instructions: Return home rest. Tylenol every 4 hours as needed for pain. Follow-up with your family doctor (list) Return for acute distress or for severe symptoms.
== END 2017-12-15 20:40 | disposition home or self-care (01) ==
LOC: ED 20:01
DX: M54.40 Lumbago with sciatica, unspecified side (principal); F32.9 Major depressive disorder, single episode, unspecified; J44.9 Chronic obstructive pulmonary disease, unspecified; N80.9 Endometriosis, unspecified; F41.9 Anxiety disorder, unspecified; K58.9 Irritable bowel syndrome, unspecified
CPT/HCPCS: 96372; 99284; J2300; J2550